=== PATIENT | female | born 1960 | race Caucasian/White ===

== ENCOUNTER 2016-09-22 12:19 | Emergency (ER) | payer OTHER ==
--- NOTE | 2016-09-22 14:53 | UC ---
Hand/Wrist HPI - HPI Summary HPI Summary: The patient comes in today for: 1. Right knee pain, right 4th and 5th finger pain: Onset: 3-4 hours ago. Palliative/provocative: Standing and walking makes it worse and ice helps. Movement of the fingers makes the pain worse--rest makes them better. Quality: Sharp and dull, Region: Right knee and right 4th and 5th fingers. Severity: At rest 5/10 for knees and fingers. Associated symptoms: Event: She tripped on the sidewalk and fell forward with her right knee hitting the concrete and the right hand was "under me and got bent very badly." Previous treatment: Ice only--no medications. Previous disease:37 years ago she had a fracture of the "end of the femur" and part of her knee cap was removed. * - History Of Current Complaint Chief Complaint: UCLowerExtremity Stated Complaint: KNEE AND HAND INJURY Time Seen by Provider: 09/22/16 14:47 Hx Obtained From: Patient Hx Last Menstrual Period: Last period years ago. - Allergies/Home Medications Allergies/Adverse Reactions: Allergies Allergy/AdvReac Type Severity Reaction Status Date / Time Cephalexin [From Keflex] Allergy Nausea Verified 09/22/16 13:56 Sulfamethoxazole Allergy Nausea Verified 09/22/16 13:56 w/Trimethoprim [From Bactrim] PMH/Surg Hx/FS Hx/Imm Hx Previously Healthy: No - Edema, Lupus, ulcerative colitis. Endocrine History Of: Denies: Diabetes, Thyroid Disease, Hyperthyroidism, Hypothyroidism, Dyslipidemia Cardiovascular History Of: Denies: Cardiac Disorders, Hypertension, Pacemaker/ICD, Myocardial Infarction , Congestive Heart Failure, Atrial Fibrillation, Deep Vein Thrombosis, Bleeding Disorders Respiratory History Of: Denies: COPD, Asthma, Bronchitis, Pneumonia, Pulmonary Embolism GI/ History Of: Denies: Gastroesophageal Reflux, Ulcer, Gastrointestinal Bleed, Gall Bladder Disease, Kidney Stones, Diverticulitis, Renal Disease, Urosepsis Neurological History Of: Denies: TIA, CVA, Dementia, Seizures, Migraine Psychological History Of: Denies: Anxiety, Depression, Bipolar Disorder, Schizophrenia, Post Traumatic Stress Disorder Cancer History Of: Denies: Lung Cancer, Colorectal Cancer, Breast Cancer, Prostate Cancer, Cervical Cancer Other History Of: Negative For: HIV, Hepatitis B, Hepatitis C, Anticoagulant Therapy - Surgical History Surgical History: Yes Surgery Procedure, Year, and Place: rt knee surgery with pin and then removed pin. laparscopic on ovary. gallbladder. appendectomy. wisdom teeth removed. 2016 - SEGMENT OF BOWEL REMOVED OR PRE-CANCEROUS POLYP - Family History Known Family History: Positive: Cardiac Disease, Hypertension - Social History Occupation: Unemployed Alcohol Use: None Substance Use Type: None Smoking Status (MU): Never Smoked Tobacco - Immunization History Most Recent Influenza Vaccination: 2016 Most Recent Tetanus Shot: THINKS IT WAS 5 OR 6 YEARS AGO Review of Systems Constitutional: Negative Skin: Rash - Abrasion. Eyes: Negative ENT: Negative Respiratory: Negative Cardiovascular: Negative Gastrointestinal: Negative Motor: Negative Neurovascular: Negative Musculoskeletal: Arthralgia, Myalgia Neurological: Negative Psychological: Negative All Other Systems Reviewed And Are Negative: Yes Physical Exam Triage Information Reviewed: Yes Appearance: Well-Appearing, No Pain Distress, Well-Nourished Vital Signs: Initial Vital Signs Temp 98.9 F 09/22/16 13:58 Pulse 77 09/22/16 13:58 Resp 17 09/22/16 13:58 BP 114/67 09/22/16 13:58 Pulse Ox 100 09/22/16 13:58 Vital Signs Reviewed: Yes Eyes: Positive: Conjunctiva Clear. Negative: Discharge ENT: Positive: Hearing grossly normal. Negative: Pharyngeal erythema, Nasal congestion, Nasal drainage, TM bulging, TM dull, TM red, Tonsillar swelling, Tonsillar exudate Dental: Negative: Gross Decay/Caries @, Dental Fracture @ Neck: Positive: Supple, Nontender, No Lymphadenopathy. Negative: Nuchal Rigidity Respiratory: Positive: Lungs clear, No respiratory distress, No accessory muscle use. Negative: Crackles, Wheezing Cardiovascular: Positive: RRR, No Murmur Abdomen Description: Positive: Nontender, No Organomegaly Musculoskeletal: Positive: Strength Intact, ROM Intact Neurological: Positive: Alert, Muscle Tone Normal Psychological: Positive: Normal Response To Family, Age Appropriate Behavior Skin: Positive: Other - She has small superficial abrasions to the right and left knee at the patellar area. The right (2 x 3 cm) is larger than the left ( 1 x 2 cm), but at this time there is no bleeding.. Negative: rashes, breakdown Diagnostics - Radiology No standard instances Xray Interpretation: Positive (See Comments) - Right patella non-displaced fracture. Hand x-ray showed no acute injury. Hand/Wrist Course/Dx - Course Course Of Treatment: Patient told of the patellar fracture. She agreed to knee immoblizer and seeing orthopedics. She did not want pain Rx. - Differential Dx/Diagnosis Differential Diagnosis/HQI/PQRI: Contusion, Sprain Provider Diagnoses: Right non-displaced patellar fracture. Discharge - Discharge Plan Condition: Stable Disposition: HOME Patient Education Materials: Patellar Fracture (ED), Contusion in Adults (ED) Referrals: Reyes Slaughter MD [Primary Care Provider] - Dave Gunn MD [Medical Doctor] - As Soon As Possible (Please call Dr. Gunn's office for an appointment for your fracture.)
--- NOTE | 2016-09-22 15:46 | RAD ---
INDICATION: Knee pain. Fall. COMPARISON: April 19, 2008 TECHNIQUE: AP, lateral, tunnel, and sunrise views were obtained. FINDINGS: There is tricompartment osteophyte change with chondrocalcinosis, joint space narrowing, and osteoarthritis. There is a nondisplaced fracture through the inferior patella. The additional irregularities of the inferior patella consistent with chronic change. IMPRESSION: PROGRESSIVE TRICOMPARTMENTAL OSTEOARTHRITIC CHANGE WITH OLD TRAUMATIC INJURIES TO THE PATELLA. THERE IS ALSO AN ACUTE, NONDISPLACED PATELLAR FRACTURE.
--- NOTE | 2016-09-22 15:47 | RAD ---
HISTORY: Pain after fall, right hand COMPARISONS: April 19, 2008 VIEWS: 4, Frontal, lateral, and oblique views of the right hand FINDINGS: BONE DENSITY: Normal. BONES: There is no displaced fracture. JOINTS: There is mild osteoarthritis of the interphalangeal joints. ALIGNMENT: There is no dislocation. SOFT TISSUES: Unremarkable. OTHER FINDINGS: None. IMPRESSION: OSTEOARTHRITIS. NO ACUTE OSSEOUS INJURY. IF SYMPTOMS PERSIST, RECOMMEND REPEAT IMAGING.
[2016-09-22 16:14] VITALS: BP 112/76
== END 2016-09-22 16:44 | disposition home or self-care (01) ==
LOC: UCEAST 12:19
DX: S82.001A Unspecified fracture of right patella, initial encounter for closed fracture (principal); W01.0XXA Fall on same level from slipping, tripping and stumbling without subsequent striking against object, initial encounter; Y93.9 Activity, unspecified; Y92.480 Sidewalk as the place of occurrence of the external cause; M19.041 Primary osteoarthritis, right hand; Z88.1 Allergy status to other antibiotic agents; Z88.2 Allergy status to sulfonamides; Z90.49 Acquired absence of other specified parts of digestive tract
CPT/HCPCS: 99212; G0463

== ENCOUNTER 2017-02-17 05:59 | Day surgery (SDC) | payer OTHER ==
[~2017-02-17 05:59] MED LIST: Buffered Lidocaine 0.9% SYRIN* 5 ML/SYR SYRINGE INTRADERM ONE
[2017-02-17] MEDS ORDERED: Clindamycin 900 MG IVPREMIX(* 900 MG/50 ML SDV IV ONE (06:27)
[2017-02-17] MEDS ORDERED: Buffered Lidocaine 0.9% SYRIN* 5 ML/SYR SYRINGE ONE (06:27)
[2017-02-17] MEDS ORDERED: Lidocaine 1% INJ* 10 MG/ML 30 ML SDV ONE (07:08)
[2017-02-17] MEDS ORDERED: fentaNYL* 50 MCG/ML 2 ML VIAL (100 MCG VIAL) ONE (07:34)
[2017-02-17] MEDS ORDERED: Midazolam* 1 MG/ML 5 ML VIAL (5 MG) ONE (07:35)
[2017-02-17] MEDS ORDERED: Acetaminophen TAB* 325 MG PO PRN (09:11)
--- NOTE | 2017-02-17 09:11 | RAD ---
INDICATION: Central venous catheter insertion COMPARISON: None TECHNIQUE: An AP portable view obtained at 0840 hours is submitted. FINDINGS: Bones/Soft Tissues: There are no acute bony findings. There is a right-sided central venous catheter with its tip positioned at the level of the superior vena cava/right atrial junction. Cardiomediastinal: The cardiomediastinal silhouette is normal. Lungs: There are no infiltrates. There is no pneumothorax. Pleura: There are no pleural effusions. Other: None IMPRESSION: RIGHT-SIDED CENTRAL VENOUS CATHETER POSITIONED DESCRIBED. NO PNEUMOTHORAX.
[2017-02-17] MEDS ORDERED: Acetaminophen TAB* 325 MG ONE (09:14)
[2017-02-17 09:44] VITALS: BP 128/87
--- NOTE | 2017-02-17 09:53 | RAD ---
INDICATION: PowerPort placement COMPARISON: None FINDINGS: 4 seconds of fluoroscopy were provided for the surgical department. Fluoroscopic spot imaging of the chest were obtained for operative control and show placement of right-sided central venous catheter which projects over the superior vena cava near the right atrial junction . CPT II Codes: 6045F (fluoro time doc)
--- NOTE | 2017-02-18 00:57 | OP ---
CC: Dr. Lamin Berger * DATE OF OPERATION: 02/17/17 - [facility] DATE OF : 58 SURGEON: Rohit Rivera MD FOUNDRY MELT SUPERVISOR: None. ANESTHESIOLOGIST: Dave Bang MD ANESTHESIA: LMAC anesthesia. PRE-OP DIAGNOSIS: Metastatic adenocarcinoma. POST-OP DIAGNOSIS: Metastatic adenocarcinoma. OPERATIVE PROCEDURE: Placement of right subclavian 8-Arabic PowerPort. DESCRIPTION OF PROCEDURE: The patient was supine on the operative table. After adequate intravenous sedation, compression stockings, Rupa Hugger warmer, and intravenous antibiotics, the right chest and neck region were prepped with anesthetic, draped in a sterile fashion. Local infiltrative anesthesia was administered. An approximately 3-cm subclavian incision was created and inferior pocket was created. Subclavian venipuncture carried out and guidewire was passed under fluoroscopic guidance. Catheter was passed through the peel- away introducer, measured and cut at 23 cm, attached to the port which was sutured into the pocket with 2-0 Prolene. The pocket was closed with 3-0 and 5- 0 Polysorb followed by Steri-Strips. The port was accessed. There was good blood return and was flushed with saline solution and heparinized solution and a Tegaderm dressing was placed. She was awakened and brought to Recovery in good condition. No complications. No drains. No pathologic specimens. Sponge and instrument counts correct. Estimated blood loss was less than 10 mL. [id number]/CPS #: [id number] MTDD
== END 2017-02-17 09:45 ==
LOC: OR 05:59
PROVIDERS: ATTEND Surgery
DX: C79.2 Secondary malignant neoplasm of skin (principal); C18.9 Malignant neoplasm of colon, unspecified
CPT/HCPCS: 71010; 76000; A9270-GY; C1788; J1642; J2001; J2250; J3010